=== PATIENT | female | born 1965 | race Caucasian/White ===

== ENCOUNTER → 2018-04-29 12:03 | Outpatient (CLI) | payer SELFPAY ==
[2018-04-29 14:08] LABS: Hemoglobin A1c 5.6 % (4.2-6.3)
[2018-04-29 14:14] LABS: Progesterone Level 0.18 ng/mL (See Comment)
[2018-04-29 14:28] LABS: Estradiol < 11.0 pg/mL; Follicle Stimulating Hormone 94.3 mIU/mL; Free T3 2.8 pg/mL (2.18-3.98); T4 Free Direct 0.98 ng/dL (0.76-1.46); Thyroid Stim Hormone (TSH) 1.11 uIU/mL (0.358-3.74)
[2018-05-02 15:35] LABS: HPV Reflexed? NOT INDICATED
--- OUTSIDE RECORDS SUMMARY | 2018-06-15 06:49 | XMS RPT_ITS ---
:1965 Author Organization [facility] Care Team Providers Name Role Phone Kellie Govea Attending Unavailable PROBLEMS PROBLEMS DATE TYPE CONDITION / CODE ATTENDING STATUS SOURCE 04/29/2018 Unknown Z12.4 - Kellie Govea Active [place] Encounter for Community screening for Hospital malignant Repository neoplasm of cervix / Z12.4(ICD-10) PROCEDURES PROCEDURES No Procedure Records FoundRESULTS RESULTS HEMOGLOBIN A1C Collected: 04/29/2018 Status: F Source: [place] 12:09 PM [facility] REPOSITORY TYPE CODE TESTS RESULT OUT OF RANGE REFERENCE UNITS LAB L501.9985 4.2-6.3 % Normal HGB A1C 5.6 Performed By: #### L501.9985 #### [facility] [address] [place], [place], [address] TESTOSTERONE, SERUM TOTAL Collected: 04/29/2018 Status: F Source: [place] 12:09 PM [facility] REPOSITORY TYPE CODE TESTS RESULT OUT OF REFERENCE UNITS RANGE LAB L509.3000 ng/dL Testosterone Normal 15.06 Result Comment: NORMAL REFERENCE RANGES MALE AGE <50 123.06 - 813.86 ng/dL MALE AGE >50 89.98 - 780.10 ng/dL FEMALE PREMENOPAUSE AGE 21 - 60 9.01 - 47.94 ng/dL FEMALE POSTMENOPAUSE AGE 45 - 89 <7.00 - 45.62 ng/dL REFERENCE RANGE AND METHODOLOGY CHANGED 05/05/2017 Performed By: #### L509.3000, L509.4001 #### [facility] [address] [place], [address] PROGESTERONE LEVEL Collected: 04/29/2018 Status: F Source: [place] 12:09 PM [facility] REPOSITORY TYPE CODE TESTS RESULT OUT OF REFERENCE UNITS RANGE LAB L509.4001 See Comment ng/mL Progesterone Normal 0.18 Result Comment: Progesterone Reference Table: UNITS Female: Follicular 0.15 - 1.40 ng/mL Luteal 3.34 - 25.56 ng/mL Mid-luteal 4.44 - 28.03 ng/mL Postmenopausal 0.0 - 0.73 ng/mL : 1st Trimester 11.22 - 90.00 ng/mL 2nd Trimester 25.55 - 89.40 ng/mL 3rd Trimester 48.40 -422.50 ng/mL Performed By: #### L509.3000, L509.4001 #### [facility] [address] [place], [place], [address] FREE T3 Collected: 04/29/2018 Status: F Source: [place] 12:09 [facility] REPOSITORY TYPE CODE TESTS RESULT OUT OF RANGE REFERENCE UNITS LAB L501.47094 2.18-3.98 pg/mL Normal FREE T3 2.8 Performed By: #### L501.03044, L501.9520, L506.0400, L3100.5125, L3300.1750 #### [facility] [address] [place], [place], [id number] THYROID STIM HORMONE Collected: 04/29/2018 Status: F Source: [place] ([facility]) 12:09 PM [facility] REPOSITORY TYPE CODE TESTS RESULT OUT OF RANGE REFERENCE UNITS LAB L501.9520 0.358-3.74 uIU/mL Normal TSH 1.11 Performed By: #### L501.53831, L501.9520, L506.0400, L3100.5125, L3300.1750 #### [facility] [address] [place], [place], [address] T4 FREE DIRECT Collected: 04/29/2018 Status: F Source: [place] 12:09 PM [facility] REPOSITORY TYPE CODE TESTS RESULT OUT OF RANGE REFERENCE UNITS LAB L506.0400 0.76-1.46 ng/dL Normal T4 FREE 0.98 DIRECT Performed By: #### L501.75130, L501.9520, L506.0400, L3100.5125, L3300.1750 #### [facility] [address] [place], [address] FOLLICLE STIMULATING Collected: 04/29/2018 Status: F Source: [place] 12:09 PM [facility] REPOSITORY TYPE CODE TESTS RESULT OUT OF RANGE REFERENCE UNITS LAB L3100.5125 mIU/mL Normal FSH 94.3 Result Comment: NORMAL REFERENCE RANGES FEMALE FOLLICULAR 2.3 - 12.6 mIU/mL MID-CYCLE PEAK 5.2 - 17.5 mIU/mL LUTEAL 1.7 - 12.9 mIU/mL POST-MENOPAUSAL ON MHT 5.9 - 72.8 mIU/mL NOT ON MHT 12.7 - 132.2 mlU/mL MALE 0.7 - 10.8 mIU/mL NEW TEST METHOD AND REFERENCE RANGES OCTOBER 05, 2011 Performed By: #### L501.11563, L501.9520, L506.0400, L3100.5125, L3300.1750 #### [facility] [address] [place], [address] ESTRADIOL Collected: 04/29/2018 Status: F Source: [place] 12:09 PM [facility] REPOSITORY TYPE CODE TESTS RESULT OUT OF RANGE REFERENCE UNITS LAB L3300.1750 pg/mL Normal ESTRADIOL < 11.0 Result Comment: NORMAL REFERENCE RANGES FEMALE FOLLICULAR 21.4 - 164.8 pg/mL MID-CYCLE PEAK 49.9 - 367.2 pg/mL LUTEAL 40.2 - 259.0 pg/mL POST-MENOPAUSAL ON MHT <11.0 - 462.1 pg/mL NOT ON MHT <11.0 - 58.3 pg/mL MALE <11.0 - 52.5 pg/mL NOTE: [facility] HAS CONFIRMED THE DRUG FULVETRANT (FASLODEX) MAY CAUSE FALSELY ELEVATED ESTRADIOL RESULTS WHEN USING THIS TEST METHOD. IF PATIENT IS TAKING FULVESTRANT AN ALTERNATIVE METHOD SHOULD BE USED TO DETERMINE ESTRADIOL CONCENTRATION. Performed By: #### L501.23742, L501.9520, L506.0400, L3100.5125, L3300.1750 #### [facility] [address] [place], [address] PAP I-G W/RFX HRHPV Collected: 04/29/2018 Status: F Source: [place] 12:00 PM [facility] REPOSITORY Order Comment: CYTOLOGY INFORMATION: - CLINICAL INFORMATION: - DATE LMP/MENOPAUSE: FEB 2018 LMP - COLLECTION VIAL: Thin Prep Vial - EQUITY ANALYST SOURCE: CERVICAL/ENDOCERVICAL - COLLECTION TECHNIQUE: BRUSH/SPATULA Specimen Comment: [id number] Specimen Comment: Source.............Cervix;Endocervix Specimen Comment: Dates / Results....LMP:02/2018 Specimen Comment: No. of containers..01 ThinPrep Vial TYPE CODE TESTS RESULT OUT OF RANGE REFERENCE UNITS LAB L7400.0800 . Normal DIAGN Comment Result Comment: NEGATIVE FOR INTRAEPITHELIAL LESION AND MALIGNANCY. LAB L7400.0900 . Normal ADEQ Comment Result Comment: Satisfactory for evaluation. Endocervical and/or squamous metaplastic cells (endocervical component) are present. LAB L7400.1400 . Normal PERFORM Comment Result Comment: Cristel Ross, Supervisor [employer] (ASCP) LAB L7400.2575 . Normal TEST METHOD Comment Result Comment: This liquid based ThinPrep(R) pap test was screened with the use of an image guided system. LAB L7400.2600 . Normal . COMM LAB L7400.2700 . Normal PAPSMR Comment Result Comment: The Pap smear is a screening test designed to aid in the detection of premalignant and malignant conditions of the uterine cervix. It is not a diagnostic procedure and should not be used as the sole means of detecting cervical cancer. Both false-positive and false-negative reports do occur. LAB L7400.2800 . Normal HPV RFLX Comment Result Comment: The HPV DNA reflex criteria were not met with this specimen result therefore, no HPV testing was performed. Performed at: [address] [place] [id number] Air Filler: Mery Mujica MD, Phone: [phone] Performed By: #### L7400.0350 #### [facility] (refer to report for specific site) refer to report for address and phone number ALLERGIES ALLERGIES No Allergies Records FoundENCOUNTERS ENCOUNTERS ADMIT/DISCHARGE ACCOUNT ADMITTING ENCOUNTER LOCATION SOURCE NUMBER CLASS 04/29/2018 [id number] Ambulatory Michele [place] 8 [facility] ing:WOBLAB Repository PAYERS PAYERS ENCOUNTER GUARANTOR PAYER SUBSCRIBER SOURCE 04/29/2018 SHYANNE Primary NOT GIVENUNK Michele [id number] Insurance:SELF PAY [address], Number: Effective Repository [place] [id number]: Date:2018-04-29 ()
== END ==
PROVIDERS: Visit Provider Obstetrics & Gynecology
DX: Z12.4 Encounter for screening for malignant neoplasm of cervix (principal); N92.6 Irregular menstruation, unspecified
CPT/HCPCS: 36415; 82670; 83001; 83036; 84144; 84403; 84439; 84443; 84481; 88175; G0145

== ENCOUNTER → 2018-09-06 13:30 | Outpatient (CLI) | payer SELFPAY ==
--- NOTE | 2018-09-06 13:39 | CT_ITS ---
STUDY: CT PELVIS WITH CONTRAST REASON FOR EXAM: Female, 53 years old. Patient indicates pelvic mass. RADIATION DOSAGE (If Supplied By Facility): CTDIvol = ( 18.29 ) mGy, DLP = ( 708.69 ) mGycm TECHNIQUE: Transaxial imaging of the pelvis was performed without oral contrast. 100 IV/Oral Isovue 300 was administered intravenously. Individualized dose optimization techniques were used for this CT. COMPARISON: None. FINDINGS: Normal urinary bladder. There are a few, small, nonspecific air-fluid levels within nondistended loops of small bowel. There are very few scattered colonic diverticula that appear uncomplicated. There is no pelvic fluid. There is no pelvic lymphadenopathy or mass lesion. The uterus is mildly enlarged and demonstrates a coarse calcification probably within a uterine fibroid seen best on sequence 2, image 43. A 4.3 x 1.5 cm density in the right periuterine space adjacent to the broad ligament is felt most likely to represent an asymmetrically enlarged ovary. The left ovary is identified and appears unremarkable. There is no pelvic sidewall adenopathy or mass. Normal visualized pelvic arteries. Normal abdominal wall. There is no acute osseous abnormality. There is no suspicious left lytic or blastic osseous pathology. CT/Pelvis WITH IV Contrast IMPRESSION: Heterogeneous, mildly enlarged uterus measuring 5.4 cm in AP dimension by 5.2 cm in transverse dimension by 4.4 cm in craniocaudad dimension. These findings probably represent diffuse myomatous change. There is a coarse calcification within the ventral aspect of the lower uterine segment that most likely represents a calcified uterine fibroid. No free fluid. No free air. No evidence of obstruction. Unremarkable urinary bladder. No suspicious lytic or blastic osseous pathology. Asymmetrically enlarged right ovary. Recommend evaluation with dedicated pelvic sonography. Electronically Signed: Jose Friedman MD at 15:50 EDT , Service support ,
== END ==
PROVIDERS: Family Provider Family Medicine; PCP Family Medicine; Referring Provider Obstetrics & Gynecology; Visit Provider Obstetrics & Gynecology
DX: R19.00 Intra-abdominal and pelvic swelling, mass and lump, unspecified site (principal); R10.2 Pelvic and perineal pain; N95.0 Postmenopausal bleeding
CPT/HCPCS: 72193; Q9967

== ENCOUNTER → 2018-09-09 09:22 | Outpatient (CLI) | payer OTHER, SELFPAY ==
[2018-09-09 10:46] LABS: LDH 185 U/L (84-246)
[2018-09-10 15:09] LABS: AFP, Tumor Marker 2.1 ng/mL (0.0-8.3); Cancer Antigen 125 19.4 U/mL (0.0-38.1); Carbohydrate AG 19-9 33 U/mL (0-35); Carcinoembryonic Antigen 2.7 ng/mL (0.0-4.7); HCG BETA-SUBUNIT QUANT. 1 mIU/mL (.)
== END ==
PROVIDERS: Visit Provider Obstetrics & Gynecology
DX: N83.8 Other noninflammatory disorders of ovary, fallopian tube and broad ligament (principal); N85.8 Other specified noninflammatory disorders of uterus
CPT/HCPCS: 36415; 82105; 82378; 83615; 84702; 86301; 86304

== ENCOUNTER 2018-10-25 09:45 | Day surgery (SDC) | payer SELFPAY ==
--- NOTE | 2018-10-13 14:30 | EKG12_ITS ---
Test Reason : PRE OP Blood Pressure : / mmHG Vent. Rate : 058 BPM Atrial Rate : 058 BPM P-R Int : 138 ms QRS Dur : 096 ms QT Int : 410 ms P-R-T Axes : 034 047 039 degrees QTc Int : 402 ms Sinus bradycardia Otherwise normal ECG Confirmed by COURT LANGE, EDMUNDO ([id number]), design editor RENEA DIAZ ([id number]) on 10/17/2018 1:31:48 PM Referred By: Kellie Govea Confirmed By:EDMUNDO YUN MD
[2018-10-13 16:00] LABS: Hematocrit 42.4 % (37-47); Hemoglobin 13.4 g/dl (12.0-15.0); Mean Corp Hgb Conc 31.6 g/gl (32-36); Mean Corpuscular Hgb 26.2 pg (27.0-32.0); Mean Corpuscular Volume 82.8 fL (81-99); Mean Platelet Vol. 11.1 fl (6.2-12.0); Platelet Count 322 K/mm3 (150-450); RBC Distribution Width CV 13.9 % (11.6-14.6); RBC Distribution Width SD 41.4 fl (35.1-43.9); Red Blood Count 5.12 M/mm3 (4.2-5.4); White Blood Count 5.5 K/mm3 (4.4-11.0)
[2018-10-13 16:04] LABS: Scan Indicated on CBC? Y/N NO
[2018-10-13 16:06] LABS: Prothrombin Time (Protime)PT. 13.4 SECONDS (11.7-14.9)
[2018-10-13 16:07] LABS: Partial Thromboplast Time 28.7 Seconds (24.1-36.2)
--- NOTE | 2018-10-24 11:09 | PCM.HP.STD ---
History of Present Illness Date of Admission: 10/25/18 The patient is a 53 year old F initally presenting with irregular bleeding and found to have hydrosalpinx and right adnexal mass. Tumor markers found to be benign. Patient desires hysterectomy with BSO. Patient with 2 prior LTCS and tubal ligation. Past Medical History Allergies No Known Allergies Allergy (Verified 10/18/18 08:54) Home Medications: Ambulatory Orders Medication Instructions Recorded NK 10/18/18 Smoking Status: Never smoker Tobacco Use: Non-smoker Review of Systems Constitutional: Denies: Chills, Fever, Weight Change HEENT: Denies: Difficulty Hearing, Difficulty Swallowing, Nasal bleeding, Nasal Congestion, Sore Throat Cardiovascular: Denies: Chest Pain, Palpitations Respiratory: Denies: Shortness of Breath, Wheezing Gastrointestinal: Denies: Constipation, Diarrhea, Nausea, Vomiting Genitourinary: Denies: Dysuria, Frequency, Hematuria, Incontinence, Urgency Musculoskeletal: Denies: Joint Pain, Muscle pain Skin: Denies: Lesions, Skin Changes Neurological: Denies: Focal weakness, Numbness Psychiatric: Denies: Anxiety, Depression Endocrine: Denies: Heat/ Cold Intolerance Hematologic/ Lymphatic: Denies: Easy Bleeding VTE Information - Inpt Only VTE Present on Admission: No VTE Mechan Device Prophylaxis: SCD's VTE Pharm Prophylaxis ordered?: No Reason prophylaxis not ordered:: Procedure Not Indicated Subjective: Healthy appearing female with no distress. - Physical Exam General: No apparent distress, Well developed, Well nourished HEENT: PERRLA, EOMI, Normocephalic Neck: No Nodes, No Nuchal Rigidity, Thyroid Normal Size and Texture Lungs: Clear to auscultation - bilaterally Cardiovascular: Regular rate, No murmurs, No rub noted Abdomen: Soft, Non Tender, Non-Distended, - - No guarding, hepatomegaly, splenomegaly, rebound tenderness Extremities: No clubbing, No cyanosis, No edema, No Calf Tenderness Skin: No rashes, Other - No ulcers, lesions Musculoskeletal: No Tenderness to Palpation of Joints or Extremities, No Muscle Wasting Lymphatic: No Cervical, Supraclavicular, or Inguinal Adenopathy Neurological: Cranial nerves II-XII grossly intact Psych/Mental Status: Alert and oriented to time, place, person, mood and affect Assessment/Plan 1. Right adnexal mass and resolved irregular menses patient for robotic assisted hysterectomy and BSO ( 2 prior LTCS) the preop preparation including bowel prep, the intraop procedures and the postop recovery reviewed. The risks of bleeding, infection and other organ damage including bladder, bowel and ureteral damage reviewed, accepted and consented.
[2018-10-25] VITALS (16 sets, daily range): BP systolic 84–125; BP diastolic 50–72; PULSE 44–89; RESP 16; TEMP 36–37.6; O2SAT 94–100; BMI 27.1
[2018-10-25 10:30] LABS: Anion Gap 2 (5-15); BUN 12 mg/dL (7-18); BUN/Creat Ratio 15.6 RATIO (10-20); Calcium,Total 9.3 mg/dL (8.5-10.1); Chloride 107 mmol/L (98-107); Creatinine, Serum 0.77 mg/dL (0.55-1.02); EST Glomerular Filtration Rate 84 mL/min (>60); Est Glom Filt Rate - Afr Amer 101 mL/min (>60); Estimated Creatinine Clearance 72.96 ml/min; Glucose 84 mg/dL (74-106); Potassium 3.6 mmol/L (3.5-5.1); Sodium Level 139 mmol/L (136-145)
--- NOTE | 2018-10-25 12:00 | HYST_PTH ---
PATIENT: SHYANNE GEE LOC: [facility] U#:[id number] AGE/SX: 53/F ROOM: RE10/25/[address]: Dr. Kellie Govea MD : 1965 BED: DIS: 10/26/2018 SPEC #: [id number] RECD: 10/25/18 16:35 STATUS: BRANNON CRUZ #: [id number] CHICO: 10/25/18 12:[address]: Kellie Govea DEPT: SURGICAL PATHOLOGY RECD BY: Charity Camilo ENTERED: 10/26/18 11:36 SP TYPE: HYSTERECT OTHR DR: Dr. Reji Childers MD Tissues: Uterus, NOS Procedures: Surgery Specimen Level V HEADER OPERATION: Robotic assisted vaginal hysterectomy bilateral salpingo PRE-OP DIAGNOSIS: Right adnexal mass, pelvic pain, irregular menses TISSUE SUBMITTED: Uterus, cervix, bilateral fallopian tubes and ovaries MICROSCOPIC DIAGNOSIS Uterus, hysterectomy: Cervix - nabothian cysts and mild chronic inflammation. Endometrium - weakly proliferative to inactive endometrium. Myometrium - leiomyomas and focal superficial adenomyosis. Right ovary - serous cystadenofibroma. Right fallopian tube - hydrosalpinx. Left ovary - serous cystadenofibroma. Left fallopian tube - no pathologic change. AM:jose 10/27/18 MICROSCOPIC DESCRIPTION Slides are reviewed. GROSS DESCRIPTION Received in fixative is one container labeled with the patient's name and designated uterus. The specimen consists of a uterus with attached right and left fallopian tubes and ovaries and attached cervix. The uterus with cervix measures 8.5 x 6 x 4.5 cm and weighs 78 gm. The ectocervix is unremarkable. The cervical os is oval in contour. The endocervical canal measures 3.2 cm in length and is grossly unremarkable. The triangular endometrial cavity measures 3.6 x 3.3 cm. The endometrium is light orona, velvety and glistening and measures up to 0.2 cm in thickness. Serial sections of the myometrium reveal multiple rubbery nodules, some with focal calcific change ranging in size from 0.2 to 2.3 cm in greatest dimension. The myometrium without nodules averages 2.2 cm in thickness. The firm, glistening, somewhat lobulated right ovary measures 5 x 3 x 2 cm. Sections reveal multiple cysts containing clear fluid ranging in size from 0.5 to 1.2 cm. The adjacent right fallopian tube measures 7 cm in length and 0.6 cm in average diameter and is discontinuous in its mid portion with cystic change and consistent with previous tubal ligation. No tubo-ovarian adhesions are identified. The left ovary is similar in appearance to the right ovary and measures 6.2 x 2 x 2 cm. Serial sections likewise reveal multiple cysts ranging in size from 0.2 to 1.2 cm and containing clear fluid. The left fallopian tube measures 6 cm in length and 0.5 cm in average diameter and is also consistent with previous tubal ligation. Guillotine Operator sections are submitted in ten cassettes as follows: 1 - anterior and posterior cervix (anterior inked black), 2 & 3 - anterior uterine wall with myometrial nodules, 4 & 5 - posterior uterine wall with nodules, 6 - additional myometrial nodules, 7 & 8 - right fallopian tube and ovary, 9 & 10 - left fallopian tube and ovary. / AM:jose 10/26/18 TC:1 CPT: 80518
--- NOTE | 2018-10-25 13:28 | PCM.OPRPT ---
Report of Operation Date of Procedure: 10/25/18 Pre-Operative Diagnosis: irregular menses, pelvic pain and right adnexal mass Post-Operative Diagnosis: irregular menses, pelvic pain, pelvic adhesive disease Surgery/Procedure Performed:: robotic assisted hysterectomy, BSO and enterolysis Description of Surgical Findings:: uterus sounded to 9-10cm in a retroflexed position. Anterior fibroid of uterus noted. Bilateral ovaries appear normal. Large amount of stool in the large colon and down to the rectum. Pelvic adhesive disease of bowel and adnexa to the pelvic side wall. cylinder tester: Emil Barrientos Type of Anesthesia:: General Anesthesiologist: Srinivasa Londono Special Medications: Cefotetan 2 grams Iv preop and Sherrell topical to the pelvis Specimen's removed: uterus, bilateral fallopian tubes, bilateral ovaries Drains: none Estimated Blood Loss (mL): 150cc Fluids Replaced: Lactated ringers Description of Procedure: Patient presented to OR in NPO status and had undergone bowel prep in home setting. No bowel movement had resulted per the patient. The patient placed on OR bed with sandbag insert. The monitors placed. The patient underwent general anesthesia. She was prepped and draped in normal sterile fashion. The patient underwent tilt test. No movement noted. Time out occurred upon entry into the OR and again prior to procedure start. The weighted speculum to the vagina and anterior lip of uterus elevated with single tooth. The kenyon placed to the bladder. Clear urine. Medium uterine manipulator to the cervix and additional anchorage via 2- 0 vicryl sutures at 3 and 9 o'clock. all other instruments removed from the vagina. Gloves changed and moved to top of patient. 12 cm above the fundal notation of the fundus an 8mm incision made and trocar placed. CO2 infused into abdomen and camera verifying abdominal placement. 2 additional 8mm robotic trocars placed in left and then right mid-abdomen under direct visualization. Hemostasis noted. A right upper 8mm incision for airseal placement and a 5mm left upper trocars placed under direct visualization. Trendelenburg of patient. Robot with parallel docking. The robotic arms placed to the trocars. The right robot arm monopolar seth and the left robot arm the vessel sealer. I degowned and moved to the console. Enterolysis occurred. The left round ligament cauterized and transected the broad ligament into anterior and posterior leafs. The infundibulopelvic ligament identified, cauterized, and transected. Further skeletonization of the uterine vessels occurred and the uterine vessels grasped, cauterized and transected. Development of the vesico-uterine peritoneum occurred. Moving the the right side of the patient , the exact same steps in the exact same ordered occurred on the patient right side. Further development of the vesico-uterine peritoneum occurred. The bilateral uterine vessels had been secured and transected. The bilateral cardinal ligaments and then the utero-sacral ligaments cauterized and transected. At the 12 o'clock position, transection of the cervix away from the vagina occurred via colpotomy in a counter-clockwise fashion. Complete dissection of the cervix from the vagina occurred and my assistant portfolio manager removed the uterus, fallopian tubes and ovaries through the vagina. The vaginal tampon was placed. Instruments changed to the right arm being ajay suture cut and the left was the large grasper. My assistant portfolio manager progressively passed 0 vicryl suture to me. 2 angle stitches connecting the vagina angle to the utero-sacral cardinal complex occurred bilateral. this was followed by 2 additional figure of 8 stitches at the vaginal cuff. hemostasis noted. Irrigation of the pelvis, Hemostasis noted. Bilateral ureters noted to be well away from the area of operation and peristalsing bilateral. Sponge, instrument and need count correct. Sherrell placed to the vaginal cuff. all instruments removed from pelvis and robot de-docked from the table. All trocars removed, Hemostasis noted. All incisions closed with 4-0 monocryl in a subcuticular fashion. Sponge, instrument and needle counts correct again. Patient awakened in stable condition. Grafts/Implants Used: none - Complications none - Admit VTE Documentation VTE Present on Admission: No VTE Mechan Device Prophylaxis: SCD's VTE Pharm Prophylaxis ordered?: No Reason prophylaxis not ordered:: Procedure Not Indicated
--- NOTE | 2018-10-25 13:32 | OP.PCM_ITS ---
Report of Operation Date of Procedure: 10/25/18 Pre-Operative Diagnosis: irregular menses, pelvic pain and right adnexal mass Post-Operative Diagnosis: irregular menses, pelvic pain, pelvic adhesive disease Surgery/Procedure Performed:: robotic assisted hysterectomy, BSO and enterolysis Description of Surgical Findings:: uterus sounded to 9-10cm in a retroflexed position. Anterior fibroid of uterus noted. Bilateral ovaries appear normal. Large amount of stool in the large colon and down to the rectum. Pelvic adhesive disease of bowel and adnexa to the pelvic side wall. can patcher: Emil Barrientos Type of Anesthesia:: General Anesthesiologist: Srinivasa Londono Special Medications: Cefotetan 2 grams Iv preop and Sherrell topical to the pelvis Specimen's removed: uterus, bilateral fallopian tubes, bilateral ovaries Drains: none Estimated Blood Loss (mL): 150cc Fluids Replaced: Lactated ringers Description of Procedure: Patient presented to OR in NPO status and had undergone bowel prep in home setting. No bowel movement had resulted per the patient. The patient placed on OR bed with sandbag insert. The monitors placed. The patient underwent general anesthesia. She was prepped and draped in normal sterile fashion. The patient underwent tilt test. No movement noted. Time out occurred upon entry into the OR and again prior to procedure start. The weighted speculum to the vagina and anterior lip of uterus elevated with single tooth. The kenyon placed to the bladder. Clear urine. Medium uterine manipulator to the cervix and additional anchorage via 2- 0 vicryl sutures at 3 and 9 o'clock. all other instruments removed from the vagina. Gloves changed and moved to top of patient. 12 cm above the fundal notation of the fundus an 8mm incision made and trocar placed. CO2 infused into abdomen and camera verifying abdominal placement. 2 additional 8mm robotic trocars placed in left and then right mid-abdomen under direct visualization. Hemostasis noted. A right upper 8mm incision for airseal placement and a 5mm left upper trocars placed under direct visualization. Trendelenburg of patient. Robot with parallel docking. The robotic arms placed to the trocars. The right robot arm monopolar seth and the left robot arm the vessel sealer. I degowned and moved to the console. Enterolysis occurred. The left round ligament cauterized and transected the broad ligament into anterior and posterior leafs. The infundibulopelvic ligament identified, cauterized, and transected. Further skeletonization of the uterine vessels occurred and the uterine vessels grasped, cauterized and transected. Development of the vesico-uterine peritoneum occurred. Moving the the right side of the patient , the exact same steps in the exact same ordered occurred on the patient right side. Further development of the vesico-uterine peritoneum occurred. The bilateral uterine vessels had been secured and transected. The bilateral cardinal ligaments and then the utero- sacral ligaments cauterized and transected. At the 12 o'clock position, transection of the cervix away from the vagina occurred via colpotomy in a counter-clockwise fashion. Complete dissection of the cervix from the vagina occurred and my mechanic's assistant removed the uterus, fallopian tubes and ovaries through the vagina. The vaginal tampon was placed. Instruments changed to the right arm being ajay suture cut and the left was the large grasper. My mechanic's assistant progressively passed 0 vicryl suture to me. 2 angle stitches connecting the vagina angle to the utero-sacral cardinal complex occurred bilateral. this was followed by 2 additional figure of 8 stitches at the vaginal cuff. hemostasis noted. Irrigation of the pelvis, Hemostasis noted. Bilateral ureters noted to be well away from the area of operation and peristalsing bilateral. Sponge, instrument and need count correct. Sherrell placed to the vaginal cuff. all instruments removed from pelvis and robot de-docked from the table. All trocars removed, Hemostasis noted. All incisions closed with 4-0 monocryl in a subcuticular fashion. Sponge, instrument and needle counts correct again. Patient awakened in stable condition. Grafts/Implants Used: none - Complications none - Admit VTE Documentation VTE Present on Admission: No VTE Mechan Device Prophylaxis: SCD's VTE Pharm Prophylaxis ordered?: No Reason prophylaxis not ordered:: Procedure Not Indicated
[2018-10-25] MEDS: Ketorolac 30 MG/ML Syringe IV ×2 (13:49→21:24)
[2018-10-25] MEDS: oxyCODONE 5 MG Tablet PO (16:39)
[2018-10-25] MEDS: Lactated Ringers 1,000 ML 125 ML IV (21:22)
[2018-10-25] MEDS: Famotidine 20 MG Tablet PO (21:24)
[2018-10-25] MEDS: Phenazopyridine 95 MG Tablet 190 MG PO (21:24)
[2018-10-25] MEDS: Docusate Sodium 100 MG Capsule 200 MG PO (21:24)
[2018-10-25] MEDS: Metoclopramide 10 MG/2 ML Vial IV (21:25)
[2018-10-26 02:45] VITALS: BP 93/45; PULSE 67; RESP 16; TEMP 36.9; O2SAT 97
[2018-10-26] MEDS: Ketorolac 30 MG/ML Syringe IV ×2 (02:46→08:09)
[2018-10-26] MEDS: Lactated Ringers 1,000 ML 125 ML IV ×2 (04:55→12:46)
[2018-10-26] MEDS: Phenazopyridine 95 MG Tablet 190 MG PO ×2 (05:52→14:16)
[2018-10-26] MEDS: Metoclopramide 10 MG/2 ML Vial IV ×2 (05:52→14:16)
[2018-10-26 05:58] LABS: Hematocrit 33.3 % (37-47); Hemoglobin 10.7 g/dl (12.0-15.0); Mean Corp Hgb Conc 32.1 g/gl (32-36); Mean Corpuscular Volume 84.1 fL (81-99); Platelet Count 216 K/mm3 (150-450); RBC Distribution Width CV 13.5 % (11.6-14.6); RBC Distribution Width SD 41.2 fl (35.1-43.9); Red Blood Count 3.96 M/mm3 (4.2-5.4); White Blood Count 10.6 K/mm3 (4.4-11.0)
[2018-10-26] MEDS: Glycerin 1 Suppository 1 SUPP RECTAL (06:01)
[2018-10-26 06:04] LABS: Scan Indicated on CBC? Y/N NO
[2018-10-26 07:17] VITALS: O2SAT 94
[2018-10-26] MEDS: Famotidine 20 MG Tablet PO (08:08)
[2018-10-26] MEDS: Docusate Sodium 100 MG Capsule 200 MG PO (08:08)
[2018-10-26 08:13] VITALS: BP 107/60; PULSE 56; RESP 16; TEMP 36.8; O2SAT 97
[2018-10-26] MEDS: Acetaminophen 500 MG Tablet 1000 MG PO (11:15)
[2018-10-26 11:22] VITALS: BP 117/60; PULSE 55; RESP 16; TEMP 36.9; O2SAT 99
--- NOTE | 2018-10-26 13:53 | PCM.DC.VHY ---
Discharge Diet: - - Soft diet: no beef, pork or fresh vegetables for 2 weeks postop. Recommend protein shake or smoothie between meals. Discharge Activity: Return to Normal Activity - Ambulate often with periods of rest in between, May Not Drive - while taking narcotic pain medications., May Shower May shower in (days): 0 - TODAY May resume sexual activity in: 6-8 weeks Weight Bearing Status: Full weight bearing Lifting Restrictions: 5 pounds Call your doctor if your incision/area has: Continuous Slow Oozing, Sudden Increased Bleeding, Increased Pain/ Swelling, Increased Redness, Foul Smelling Discharge Call your doctor if you observe: Fever of 101 or Higher, Inability to urinate, Inability to have a bowel movement, Using more than one pad per hour Remove Dressing in (days):: 1 - remove bandages with warm, soapy water on 10/28/18 Additional Instructions: please take pyridium as previously prescribed Allergies/Adverse Reactions: Allergies No Known Allergies Allergy (Verified 10/25/18 10:19) Medications to take at Discharge NK 10/18/18 Primary Care Physician: Reji Childers [Primary Care Provider] - Test Results: Test results from this visit will be discussed in further detail at your follow-up appointment, if applicable. Please Follow Up With: Kellie Govea MD When: as previously scheduled
--- NOTE | 2018-10-26 13:57 | DCINST_ITS ---
Discharge Diet: - - Soft diet: no beef, pork or fresh vegetables for 2 weeks postop. Recommend protein shake or smoothie between meals. Discharge Activity: Return to Normal Activity - Ambulate often with periods of rest in between, May Not Drive - while taking narcotic pain medications., May Shower May shower in (days): 0 - TODAY May resume sexual activity in: 6-8 weeks Weight Bearing Status: Full weight bearing Lifting Restrictions: 5 pounds Call your doctor if your incision/area has: Continuous Slow Oozing, Sudden Increased Bleeding, Increased Pain/ Swelling, Increased Redness, Foul Smelling Discharge Call your doctor if you observe: Fever of 101 or Higher, Inability to urinate, Inability to have a bowel movement, Using more than one pad per hour Remove Dressing in (days):: 1 - remove bandages with warm, soapy water on 10/28/18 Additional Instructions: please take pyridium as previously prescribed Allergies/Adverse Reactions: Allergies No Known Allergies Allergy (Verified 10/25/18 10:19) Medications to take at Discharge NK 10/18/18 Primary Care Physician: Reji Childers [Primary Care Provider] - Test Results: Test results from this visit will be discussed in further detail at your follow- up appointment, if applicable. Please Follow Up With: Kellie Govea MD When: as previously scheduled
[2018-10-26 14:25] VITALS: BP 124/56; PULSE 58; RESP 16; TEMP 36.6; O2SAT 95
--- NOTE | 2018-10-26 14:36 | PN.OBGYN_ITS ---
Subjective: Feels well. + flatus and + bowel movement. Large void as well. Minimal post- void residual. Tolerating po intake. - Physical Exam General: No apparent distress, Well developed, Well nourished HEENT: PERRLA, EOMI, Normocephalic Oral: Moist Mucosa Neck: Supple, No Nuchal Rigidity Lungs: Clear to auscultation - bilaterally Cardiovascular: Regular rate, No murmurs, No rub noted Abdomen: Soft, Non Tender, Non-Distended, - - No guarding, hepatomegaly, splenomegaly, rebound tenderness. Incisions x 5 dry. Extremities: No edema, No Calf Tenderness Skin: No rashes, Other - No ulcers, lesions Musculoskeletal: No Muscle Wasting Neurological: Cranial nerves II-XII grossly intact Vital Signs Temp Pulse Resp BP Pulse Ox 97.9 F 58 L 16 124/56 H 95 10/26/18 14:25 10/26/18 14:25 10/26/18 14:25 10/26/18 14:25 10/26/18 14:25 Oxygen Delivery Method Room Air Weight: 158 lb 8.198 oz Body Mass Index (BMI) 27.1 Intake and Output for Last 24 Hours 10/24/18 10/25/18 10/26/18 23:59 23:59 23:59 Intake Total 4391 / 4391 1765 / 1765 Output Total 970 / 970 850 / 850 Balance 3421 / 3421 915 / 915 Laboratory Tests Past 24 Hrs 10/26/18 05:35 WBC 10.6 RBC 3.96 L Hgb 10.7 L Hct 33.3 L MCV 84.1 MCH 27.0 MCHC 32.1 RDW 13.5 RDW Differential 41.2 Plt Count 216 MPV 10.0 Medical Necessity - Tobacco Use Smoking Status: Never smoker Tobacco Use: Non-smoker Assessment/Plan 1. Right adnexal mass and resolved irregular menses patient for robotic assisted hysterectomy and BSO ( 2 prior LTCS) POD #1 ambulating well Flatus production and bowel movement voiding well tolerating po intake discharge to home
== END 2018-10-26 14:57 | disposition home or self-care (01) ==
LOC: SDC 09:45 → AC 09:47 → MS3 15:06
PROVIDERS: Family Provider Family Medicine; PCP Family Medicine; Referring Provider Obstetrics & Gynecology; Visit Provider Obstetrics & Gynecology
PROC: 0UT90ZZ Resection of Uterus, Open Approach (ICD-10-PCS; CPT 58552; principal; 2018-10-25 11:40)
DX: N80.0 Endometriosis of uterus (principal); D27.1 Benign neoplasm of left ovary; D27.0 Benign neoplasm of right ovary; N70.11 Chronic salpingitis; N88.8 Other specified noninflammatory disorders of cervix uteri; N92.6 Irregular menstruation, unspecified; N73.6 Female pelvic peritoneal adhesions (postinfective); D25.9 Leiomyoma of uterus, unspecified; Z98.51 Tubal ligation status
CPT/HCPCS: 00840; 58552; S2900; 36415; 80048; 85027; 85610; 85730; 86850; 86900; 88307; 93005; J7120; J2405